=== PATIENT | male | born 1985 | race Caucasian/White ===

== ENCOUNTER 2020-12-13 13:07 | Emergency (ER) | payer MEDICAID, OTHER ==
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
[2020-12-13 20:45] VITALS: BP 122/74; PULSE 81
== END 2020-12-13 14:51 | disposition home or self-care (01) ==
LOC: FB.ED 13:07
DX: S09.90XA Unspecified injury of head, initial encounter (principal); S16.1XXA Strain of muscle, fascia and tendon at neck level, initial encounter; S00.81XA Abrasion of other part of head, initial encounter; V89.2XXA Person injured in unspecified motor-vehicle accident, traffic, initial encounter
CPT/HCPCS: 70450; 72125; 99282; 99284-25

== ENCOUNTER 2021-07-19 04:18 | Emergency (ER) | payer MEDICAID, OTHER ==
[2021-07-19] MEDS ORDERED: Sodium Chloride 0.9% 10 ML Syringe FLUSH PRN (04:38)
[2021-07-19] MEDS ORDERED: Morphine 2 MG/ML SYRINGE IVPUSH STA (04:40)
[2021-07-19] MEDS ORDERED: Ketorolac 30 MG/ML SDV IVPUSH STA (04:40)
[2021-07-19] MEDS ORDERED: Ondansetron 4 MG/2 ML SDV IVPUSH STA (04:40)
[2021-07-19] MEDS ORDERED: Sodium Chloride 0.9% 1,000 ML IV SCH (04:45)
[2021-07-19] MEDS ORDERED: Iopamidol 755 Mg/ML 100 ML Bottle IV ONE (05:14)
--- NOTE | 2021-07-19 06:49 | EDM.PDOC ---
ED HPI GENERAL MEDICAL PROBLEM - General Chief Complaint: Abdominal Pain Stated Complaint: PAIN IN HIS SIDE Time Seen by Provider: 07/19/21 04:35 Source of Information: Reports: Patient History Limitations: Reports: No Limitations - History of Present Illness INITIAL COMMENTS - FREE TEXT/NARRATIVE: Patient presented to the ED because of rt sided abdominal pain which started at about 0200. The pain is sharp, squeezing,8/10 with associated N/V/D x 2. there is no fever, chills, he rate his pain 8/10. there is no fever, chills, cough or cold. - Related Data Allergies Allergy/AdvReac Type Severity Reaction Status Date / Time No Known Allergies Allergy Verified 07/20/21 07:47 Home Meds: Home Meds DULoxetine [Cymbalta] 60 mg PO DAILY 07/20/21 [History] Past Medical History HEENT History: Reports: Other (See Below) Other HEENT History: Tooth abscess. Gastrointestinal History: Reports: Cholelithiasis Genitourinary History: Reports: Renal Calculus Endocrine/Metabolic History: Reports: Obesity/BMI 30+ - Infectious Disease History Infectious Disease History: Reports: Chicken Pox - Past Surgical History HEENT Surgical History: Reports: Oral Surgery GI Surgical History: Reports: Cholecystectomy Social & Family History - Family History Family Medical History: Unobtainable - Caffeine Use Caffeine Use: Reports: Coffee, Energy Drinks ED ROS GENERAL - Review of Systems Review Of Systems: See Below Constitutional: Reports: No Symptoms HEENT: Reports: No Symptoms Respiratory: Reports: No Symptoms Cardiovascular: Reports: No Symptoms Endocrine: Reports: No Symptoms GI/Abdominal: Reports: Abdominal Pain, Diarrhea, Nausea, Vomiting : Reports: No Symptoms Musculoskeletal: Reports: No Symptoms Skin: Reports: No Symptoms Neurological: Reports: No Symptoms Psychiatric: Reports: No Symptoms ED EXAM, GI/ABD - Physical Exam Exam: See Below Exam Limited By: No Limitations General Appearance: Alert, No Apparent Distress Ears: Normal External Exam, Normal Canal Nose: Normal Inspection, Normal Mucosa, No Blood Throat/Mouth: Normal Inspection, Normal Lips, Normal Teeth, Normal Gums Head: Atraumatic, Normocephalic Neck: Normal Inspection, Supple, Non-Tender, Full Range of Motion Respiratory/Chest: No Respiratory Distress, Lungs Clear, Normal Breath Sounds Cardiovascular: Normal Peripheral Pulses, Regular Rate, Rhythm, No Edema, No Gallop, No JVD, No Murmur, No Rub GI/Abdominal Exam: Normal Bowel Sounds, Soft, No Organomegaly, Other (tendernes over the RLQ) Back Exam: Normal Inspection, Full Range of Motion Extremities: Normal Inspection, Normal Range of Motion, Non-Tender Neurological: Alert, Oriented, CN II-XII Intact, Normal Cognition, Normal Gait Psychiatric: Normal Affect Course - Vital Signs Text/Narrative:: Lab and CT abd-pelvis result was reviewed and discussed with patient NS 1 L bolus Zofran 4 mg IV x1 Toradol 30 mg IV x1 Morphine 2 mg IV x1 Last Recorded V/S: Last Vital Signs Temp 36.9 C 07/19/21 06:40 Pulse 73 07/19/21 06:40 Resp 18 07/19/21 06:40 BP 145/87 H 07/19/21 06:40 Pulse Ox 96 07/19/21 06:40 - Orders/Labs/Meds Labs: Laboratory Tests 07/19/21 07/19/21 07/19/21 Range/Units 04:54 04:54 04:54 WBC 9.5 (3.2-10.1) x10-3/uL RBC 5.17 (3.90-5.90) x10(6)uL Hgb 16.0 (12.9-17.7) g/dL Hct 47.0 (38.3-50.1) % MCV 90.8 (80.8-98.7) fL MCH 31.0 (27.0-33.3) pg MCHC 34.1 (28.7-35.3) g/dL RDW 12.8 (12.4-15.0) % Plt Count 217 (117-477) x10(3)uL MPV 7.4 (6.7-11.0) fL Neut % (Auto) 58.2 (40.3-71.8) % Lymph % (Auto) 27.3 (15.8-45.3) % [place] % (Auto) 10.6 (5.5-15.2) % Eos % (Auto) 3.5 (0.1-6.8) % Baso % (Auto) 0.4 (0.3-3.8) % Neut # (Auto) 5.5 (1.7-6.9) x10-3/uL Lymph # (Auto) 2.6 (0.5-4.5) x10-3/uL [place] # (Auto) 1.0 (0.0-1.2) x10-3/uL Eos # (Auto) 0.3 (0.0-0.6) x10-3/uL Baso # (Auto) 0.0 (0.0-0.3) x10-3/uL Sodium 144 (135-145) mmol/L Potassium 3.6 (3.5-5.3) mmol/L Chloride 107 (100-110) mmol/L Carbon Dioxide 27 (21-32) mmol/L BUN 16 (7-18) mg/dL Creatinine 1.2 (0.70-1.30) mg/dL Est Cr Clr Drug Dosing TNP Estimated GFR (MDRD) > 60 (>60) BUN/Creatinine Ratio 13.3 (9-20) Glucose 138 H (80-116) mg/dL Calcium 8.4 L (8.6-10.2) mg/dL Total Bilirubin 0.5 (0.1-1.3) mg/dL AST 17 (5-25) IU/L ALT 40 H (12-36) U/L Alkaline Phosphatase 66 (56-112) IU/L Total Protein 6.3 (6.0-8.0) g/dL Albumin 3.3 L (3.5-5.2) g/dL Globulin 3.0 g/dL Albumin/Globulin Ratio 1.1 Amylase 37 (25-115) U/L Lipase 200 (73-393) U/L Urine Color (YELLOW) Urine Appearance (CLEAR) Urine pH (5.0-6.5) Ur Specific [place] (1.010-1.025) Urine Protein (NEGATIVE) mg/dL Urine Glucose (UA) (NORMAL) mg/dL Urine Ketones (NEGATIVE) mg/dL Urine Occult Blood (NEGATIVE) Urine Nitrite (NEGATIVE) Urine Bilirubin (NEGATIVE) Urine Urobilinogen (NEGATIVE) mg/dL Ur Leukocyte Esterase (NEGATIVE) Urine RBC (0-5) Urine WBC (0-5) Ur Squamous Epith Cells (NS,R,O) Urine Bacteria (NS) Urine Mucus (NS) 30/ Range/Units 06:30 WBC (3.2-10.1) x10-3/uL RBC (3.90-5.90) x10(6)uL Hgb (12.9-17.7) g/dL Hct (38.3-50.1) % MCV (80.8-98.7) fL MCH (27.0-33.3) pg MCHC (28.7-35.3) g/dL RDW (12.4-15.0) % Plt Count (117-477) x10(3)uL MPV (6.7-11.0) fL Neut % (Auto) (40.3-71.8) % Lymph % (Auto) (15.8-45.3) % [place] % (Auto) (5.5-15.2) % Eos % (Auto) (0.1-6.8) % Baso % (Auto) (0.3-3.8) % Neut # (Auto) (1.7-6.9) x10-3/uL Lymph # (Auto) (0.5-4.5) x10-3/uL [place] # (Auto) (0.0-1.2) x10-3/uL Eos # (Auto) (0.0-0.6) x10-3/uL Baso # (Auto) (0.0-0.3) x10-3/uL Sodium (135-145) mmol/L Potassium (3.5-5.3) mmol/L Chloride (100-110) mmol/L Carbon Dioxide (21-32) mmol/L BUN (7-18) mg/dL Creatinine (0.70-1.30) mg/dL Est Cr Clr Drug Dosing Estimated GFR (MDRD) (>60) BUN/Creatinine Ratio (9-20) Glucose (80-116) mg/dL Calcium (8.6-10.2) mg/dL Total Bilirubin (0.1-1.3) mg/dL AST (5-25) IU/L ALT (12-36) U/L Alkaline Phosphatase (56-112) IU/L Total Protein (6.0-8.0) g/dL Albumin (3.5-5.2) g/dL Globulin g/dL Albumin/Globulin Ratio Amylase (25-115) U/L Lipase (73-393) U/L Urine Color Yellow (YELLOW) Urine Appearance Slightly cloudy (CLEAR) Urine pH 6.5 (5.0-6.5) Ur Specific [place] 1.015 (1.010-1.025) Urine Protein Trace (NEGATIVE) mg/dL Urine Glucose (UA) Normal (NORMAL) mg/dL Urine Ketones Negative (NEGATIVE) mg/dL Urine Occult Blood Large H (NEGATIVE) Urine Nitrite Negative (NEGATIVE) Urine Bilirubin Negative (NEGATIVE) Urine Urobilinogen 1 H (NEGATIVE) mg/dL Ur Leukocyte Esterase Small H (NEGATIVE) Urine RBC 20-30 H (0-5) Urine WBC 0-5 (0-5) Ur Squamous Epith Cells Occasional (NS,R,O) Urine Bacteria Few H (NS) Urine Mucus Few H (NS) Meds: Medications Discontinued Medications Generic Name Dose Route Start Last Admin Trade Name Freq PRN Reason Stop Dose Admin Sodium Chloride 1,000 mls @ 999 mls/hr 07/19/21 04:45 07/19/21 05:00 Normal Saline IV 999 mls/hr ASDIRECTED YONI Administration Iopamidol 100 ml 07/19/21 05:14 07/19/21 05:22 Iopamidol 755 Mg/Ml 100 Ml Bottle IV 07/19/21 05:15 100 ml . DIRECTED ONE Administration Ketorolac Tromethamine 30 mg 07/19/21 04:40 07/19/21 05:07 Ketorolac 30 Mg/Ml Sdv IVPUSH 07/19/21 04:41 30 mg NOW STA Administration Morphine Sulfate 2 mg 07/19/21 04:40 07/19/21 05:11 Morphine 2 Mg/Ml Syringe IVPUSH 07/19/21 04:41 2 mg NOW STA Administration Ondansetron HCl 4 mg 07/19/21 04:40 07/19/21 05:01 Ondansetron 4 Mg/2 Ml Sdv IVPUSH 07/19/21 04:41 4 mg NOW STA Administration Sodium Chloride 10 ml 07/19/21 04:38 Sodium Chloride 0.9% 10 Ml Syringe FLUSH ASDIRECTED PRN Keep Vein Open Departure - Departure Time of Disposition: 06:45 Disposition: Home, Self-Care 01 Condition: Good Clinical Impression: Gastroenteritis, Abdominal pain - Discharge Information Instructions: Viral Gastroenteritis, Adult, [id number] Referrals: PCP,None [Primary Care Provider] - Forms: ED Department Discharge Additional Instructions: Please read discharge instructions om stomach flu Frequent hand washing drink at least 2 liters of water daily Imodium 2 tablets every 6 hours as needed for diarrhea Follow p as needed
[2021-07-20 07:30] VITALS: BP 145/87; PULSE 73
== END 2021-07-19 07:00 | disposition home or self-care (01) ==
LOC: FB.ED 04:18
DX: K52.9 Noninfective gastroenteritis and colitis, unspecified (principal); E66.9 Obesity, unspecified; Z68.41 Body mass index [BMI] 40.0-44.9, adult
CPT/HCPCS: 36415; 74177; 80053; 81001; 82150; 83690; 85025; 96374; 96375; 99284; J1885; J2270; J2405; J7030; Q9967

== ENCOUNTER 2021-12-30 18:34 | Emergency (ER) | payer OTHER ==
[2021-12-30 19:24] VITALS: BP 139/80; PULSE 90
== END 2021-12-30 20:05 | disposition home or self-care (01) ==
LOC: FB.ED 18:34
DX: S29.011A Strain of muscle and tendon of front wall of thorax, initial encounter (principal); E66.9 Obesity, unspecified; Z68.42 Body mass index [BMI] 45.0-49.9, adult
CPT/HCPCS: 36415; 71101-LT; 80048; 85025; 99283